=== PATIENT | female | born 2000 | race Caucasian/White ===

== ENCOUNTER 2023-12-13 08:09 | Inpatient (IN) | payer OTHER, BC ==
[~2023-12-13 08:09] MED LIST: Lidocaine 1% 10 ML MDV ONE; Phenylephrine 1% 10 MG/ML SDV ONE
[2023-12-13] MEDS ORDERED: Calcium Carbonate 500 MG Tab.Chew PO PRN (08:23)
[2023-12-13] MEDS ORDERED: Nalbuphine 10 MG/ML Syringe IVPUSH PRN (08:23)
[2023-12-13] MEDS ORDERED: Lidocaine 1% 50 ML MDV INJECT PRN (08:23)
[2023-12-13] MEDS ORDERED: Sodium Chloride 0.9% 10 ML Syringe FLUSH PRN (08:23)
[2023-12-13] MEDS ORDERED: Oxytocin/Lactated Ringers 30 UNIT/500 ML BAG IV SCH ×2 (08:30→18:04)
[2023-12-13 08:51] LABS: BASOPHILS PERCENT AUTO 0.3 % (0.0-1.0); EOSINOPHILS ABSOLUTE AUTO 0.2 K/mm3 (0.0-0.4); EOSINOPHILS PERCENT AUTO 1.3 % (0.0-6.0); HEMATOCRIT 36.7 % (37.0-47.0); HEMOGLOBIN 12.7 gm/dl (12.0-16.0); IMMATURE GRAN ABSOLUTE AUTO 0.05 K/mm3 (0.00-0.05); IMMATURE GRAN PERCENT AUTO 0.4 % (0.0-0.4); LYMPHOCYTES ABSOLUTE AUTO 2.3 K/mm3 (1.0-4.8); LYMPHOCYTES PERCENT AUTO 20.3 % (24.0-44.0); MEAN CORPUSCULAR HEMOGLOBIN 30.2 pg (28.0-32.0); MEAN CORPUSCULAR HGB CONC 34.6 g/dl (32.0-36.0); MEAN CORPUSCULAR VOLUME 87.4 fl (83.0-99.0); MEAN PLATELET VOLUME 10.7 fl (9.4-12.3); MONOCYTES ABSOLUTE AUTO 0.6 K/mm3 (0.0-0.8); MONOCYTES PERCENT AUTO 5.1 % (0.0-8.0); NEUTROPHILS ABSOLUTE AUTO 8.1 K/mm3 (1.8-7.7); NEUTROPHILS PERCENT AUTO 72.6 % (41.0-71.0); PLATELET COUNT,PLT 224 K/mm3 (150-400); WHITE BLOOD CELL COUNT,WBC 11.17 K/mm3 (3.9-11.3)
[2023-12-13] MEDS: Lactated Ringers 1,000 ML IV SCH (11:31)
[2023-12-13] MEDS ORDERED: diphenhydrAMINE 50 MG/ML SDV IVPUSH PRN (11:33)
[2023-12-13] MEDS ORDERED: ePHEDrine 50 MG/ML SDV IVPUSH PRN (11:33)
[2023-12-13] MEDS: fentaNYL 100 MCG/2 ML SDV EPIDUR PRN (12:05)
[2023-12-13] MEDS: Bupivacaine/fentaNYL/NS 100 ML Bag EPIDUR PRN (12:06)
[2023-12-13] MEDS: Ondansetron 4 MG/2 ML SDV IVPUSH PRN (12:51)
[2023-12-13] MEDS ORDERED: dexmedeTOMIDine HCl 200 MCG/2 ML SDV ONE (14:03)
[2023-12-13] MEDS: Phenylephrine 1% 10 MG/ML SDV IVPUSH PRN (14:47)
[2023-12-13] MEDS: Oxytocin/Lactated Ringers 30 UNIT/500 ML BAG IV SCH (15:26)
[2023-12-13] MEDS ORDERED: Magnesium Hydroxide 400 MG/5 ML Susp 30 ML Cup PO PRN (18:04)
[2023-12-13] MEDS ORDERED: Hydrocortisone Acetate 25 MG Supp RECTAL PRN (18:04)
[2023-12-13] MEDS: Benzocaine/Menthol 20%-0.5% Spray 78 GM Cannister TOP PRN (18:10)
[2023-12-13] MEDS: Witch Hazel Medicated Pads 40/Jar TOP PRN (18:10)
[2023-12-13] MEDS: Ibuprofen 600 MG Tab PO PRN (18:11)
[2023-12-13] MEDS: Acetaminophen 325 MG Tab PO PRN (22:03)
[2023-12-14] MEDS: Prenatal Multivitamin with Calcium/Folic Acid/Iron Tab PO SCH (09:00)
[2023-12-15] MEDS: Docusate Sodium 100 MG Cap PO PRN (09:27)
[2023-12-15 12:52] VITALS: BP 115/68; PULSE 72
== END 2023-12-15 11:30 | disposition home or self-care (01) | DRG 807 ==
LOC: JD.OBCHECK 08:09 → JD.OB 08:12 → JD.OBCHECK 08:23 → OBSVTOIN 16:24 → JD.OB 16:25
PROVIDERS: ADMIT Obstetrics & Gynecology; ATTEND Obstetrics & Gynecology
PROC: 10E0XZZ Delivery of Products of Conception, External Approach (ICD-10-PCS; principal; 2023-12-13)
PROC: 0KQM0ZZ Repair Perineum Muscle, Open Approach (ICD-10-PCS; 2023-12-13)
PROC: 3E0R3BZ Introduction of Anesthetic Agent into Spinal Canal, Percutaneous Approach (ICD-10-PCS; 2023-12-13)
PROC: 00HU33Z Insertion of Infusion Device into Spinal Canal, Percutaneous Approach (ICD-10-PCS; 2023-12-13)
PROC: 0HB9XZZ Excision of Perineum Skin, External Approach (ICD-10-PCS; 2023-12-13)
PROC: 3E033VJ Introduction of Other Hormone into Peripheral Vein, Percutaneous Approach (ICD-10-PCS; 2023-12-13)
DX: O42.02 Full-term premature rupture of membranes, onset of labor within 24 hours of rupture (principal); Z37.0 Single live birth; O48.0 Post-term pregnancy; O99.334 Smoking (tobacco) complicating childbirth; O99.214 Obesity complicating childbirth; E66.8 Other obesity; O69.81X0 Labor and delivery complicated by cord around neck, without compression, not applicable or unspecified; O70.1 Second degree perineal laceration during delivery; F17.290 Nicotine dependence, other tobacco product, uncomplicated; Z3A.40 40 weeks gestation of pregnancy; Z88.8 Allergy status to other drugs, medicaments and biological substances; Z98.890 Other specified postprocedural states; Z90.89 Acquired absence of other organs
CPT/HCPCS: 36415; 51702; 59025; 59409; 85025; 86592; A9270-GY; J2371; J2405; J3010; J3490; J7120; J7999